=== PATIENT | female | born 1985 | race Two or more races ===

== ENCOUNTER 2021-05-24 10:08 | Emergency (ER) | payer OTHER ==
[~2021-05-24] VITALS: Ht 167.6 cm; Wt 56.7 kg
[2021-05-24] MEDS ORDERED: KETO10TA2 PO (13:53)
== END 2021-05-24 14:21 | disposition home or self-care (01) ==
LOC: ER 10:08
DX: S59.812A Other specified injuries left forearm, initial encounter (principal); S79.812A Other specified injuries of left hip, initial encounter; S59.802A Other specified injuries of left elbow, initial encounter; W10.8XXA Fall (on) (from) other stairs and steps, initial encounter; Y93.89 Activity, other specified; Y92.481 Parking lot as the place of occurrence of the external cause; Y99.8 Other external cause status

== ENCOUNTER 2021-05-26 09:48 | Outpatient (CLI) | payer OTHER ==
[~2021-05-26 09:48] MED LIST: KETO10TA2 PO
== END 2021-05-26 10:22 | disposition home or self-care (01) ==
LOC: MRI 09:48
PROVIDERS: ATTEND Orthopaedic Surgery
DX: M25.022 Hemarthrosis, left elbow (principal); M25.532 Pain in left wrist
CPT/HCPCS: 73221

== ENCOUNTER 2021-06-27 10:42 | Outpatient (CLI) | payer OTHER | END 2021-06-27 10:43 | disposition home or self-care (01) | LOC: RAD 10:42 | PROVIDERS: ATTEND Orthopaedic Surgery | DX: S52.572D Other intraarticular fracture of lower end of left radius, subsequent encounter for closed fracture with routine healing (principal) ==

== ENCOUNTER 2021-07-05 13:21 | Outpatient (CLI) | payer OTHER | END 2021-07-05 13:22 | disposition home or self-care (01) | LOC: NUCLEAR 13:21 | PROVIDERS: ATTEND Orthopaedic Surgery | DX: M81.0 Age-related osteoporosis without current pathological fracture (principal) ==

== ENCOUNTER → 2021-07-06 | Outpatient (CLI) | payer OTHER | END | disposition home or self-care (01) | LOC: SONOGRAMA 09:12 | DX: R10.32 Left lower quadrant pain (principal) ==

== ENCOUNTER 2022-01-24 07:49 | Outpatient (CLI) | payer OTHER | END 2022-01-24 08:02 | disposition home or self-care (01) | LOC: SONOGRAMA 07:49 | DX: R10.10 Upper abdominal pain, unspecified (principal) ==

== ENCOUNTER 2022-08-17 10:34 | Outpatient (CLI) | payer OTHER | END 2022-08-17 10:49 | disposition home or self-care (01) | LOC: SONOGRAMA 10:34 | PROVIDERS: ATTEND Obstetrics & Gynecology Gynecology | DX: D25.9 Leiomyoma of uterus, unspecified (principal) ==

== ENCOUNTER 2023-02-15 13:29 | Outpatient (CLI) | payer OTHER | END 2023-02-15 13:44 | disposition home or self-care (01) | LOC: SONOGRAMA 13:29 | PROVIDERS: ATTEND Obstetrics & Gynecology Gynecology | DX: D25.9 Leiomyoma of uterus, unspecified (principal) ==

== ENCOUNTER 2023-09-09 15:37 | Outpatient (CLI) | payer OTHER | END 2023-09-09 15:43 | disposition home or self-care (01) | LOC: SONOGRAMA 15:37 | PROVIDERS: ATTEND Obstetrics & Gynecology Gynecology | DX: I86.2 Pelvic varices (principal) ==

== ENCOUNTER 2023-10-25 07:10 | Outpatient (CLI) | payer OTHER | END 2023-10-25 07:35 | disposition home or self-care (01) | LOC: MRI 07:10 | PROVIDERS: ATTEND Obstetrics & Gynecology Gynecology | DX: D25.9 Leiomyoma of uterus, unspecified (principal); N92.0 Excessive and frequent menstruation with regular cycle; R30.0 Dysuria; Z12.31 Encounter for screening mammogram for malignant neoplasm of breast | CPT/HCPCS: 72197 ==

== ENCOUNTER 2024-04-28 12:58 | Outpatient (CLI) | payer OTHER | END 2024-04-28 13:02 | disposition home or self-care (01) | LOC: NUCLEAR 12:58 | PROVIDERS: ATTEND Internal Medicine Hepatology | DX: M81.0 Age-related osteoporosis without current pathological fracture (principal) ==

== ENCOUNTER 2024-07-06 08:27 | Emergency (ER) | payer OTHER ==
[~2024-07-06] VITALS: Ht 165.1 cm; Wt 56.7 kg
[2024-07-06] MEDS ORDERED: 0.9 % SODIUM CHLORIDE 1,000 ML IV STA (09:18)
[2024-07-06 10:24] LABS: HEMATOCRIT 37.3 % (36.0-45.00); HEMOGLOBIN 12.5 g/dL (12.0-15.00); MEAN CELL VOLUME 91.8 fL (80.00-100.00); MEAN CORPUSCULAR HEMOGLOBIN 30.7 pg (27.00-32.0); MEAN CORPUSCULAR HGB CONC 33.5 g/dl (32.0-36.0); PLATELET COUNT 165 K/uL (150-450); RED BLOOD COUNT 4.06 M/uL (4.00-6.00); RED CELL DISTRIBUTION WIDTH 13.9 % (11.5-14.5)
[2024-07-06 10:44] LABS: CALCIUM 8.6 mg/dL (8.5-10.1); CREATININE SERUM 0.85 mg/dL (0.55-1.02); GFR 75.26; POTASSIUM 3.47 mEq/L (3.5-5.1)
[2024-07-06 11:23] LABS: URINE APPEARANCE Clear; URINE BILIRRUBIN Negative (NEGATIVE); URINE BLOOD Negative; URINE COLOR Yellow; URINE GLUCOSE Negative (NEGATIVE); URINE KETONE 15 (NEGATIVE); URINE LEUKOCYTE Negative; URINE NITRATE Negative; URINE PROTEIN Trace (NEGATIVE)
[2024-07-06 11:26] LABS: URINE BACTERIA 685.4 uL (0.0-1933); URINE EPITHELIAL CELLS 13.7 uL (0.0-38.8); URINE RBC 10.6 uL (0.0-20.8); URINE WBC 2.6 uL (0.0-23.2)
== END 2024-07-06 15:28 | disposition home or self-care (01) ==
LOC: ER 08:29
PROVIDERS: Emergency Medicine
DX: R10.9 Unspecified abdominal pain (principal); Z88.2 Allergy status to sulfonamides; D25.9 Leiomyoma of uterus, unspecified

== ENCOUNTER 2024-08-04 08:08 | Outpatient (CLI) | payer OTHER | END 2024-08-04 08:10 | disposition home or self-care (01) | LOC: MRI 08:08 | PROVIDERS: ATTEND Obstetrics & Gynecology Obstetrics | DX: D25.1 Intramural leiomyoma of uterus (principal); R10.2 Pelvic and perineal pain | CPT/HCPCS: 72197; 74183 ==

== ENCOUNTER 2024-08-07 13:46 | Outpatient (CLI) | payer OTHER | END 2024-08-07 13:54 | disposition home or self-care (01) | LOC: RAD 13:46 | PROVIDERS: ATTEND Obstetrics & Gynecology Obstetrics | DX: Z01.810 Encounter for preprocedural cardiovascular examination (principal) ==